=== PATIENT | male | born 1995 | race Caucasian/White ===

== ENCOUNTER → 2018-09-26 | Day surgery (SDC) | payer BC ==
[~2018-09-26] MED LIST: LORTAB 5/500 501 TAB PO; NO HOME MEDICATIONS
== END ==
LOC: SDCO 08:00
DX: R10.32 Left lower quadrant pain (principal); R10.13 Epigastric pain; I10 Essential (primary) hypertension; K21.9 Gastro-esophageal reflux disease without esophagitis
CPT/HCPCS: J2704; J7030

== ENCOUNTER → 2018-10-20 | Outpatient (CLI) | payer BC | LOC: COL.RAD 09:58 | DX: R10.32 Left lower quadrant pain (principal) | CPT/HCPCS: A9537 ==

== ENCOUNTER → 2020-02-01 | Outpatient (CLI) | payer BC | LOC: COL.RAD 08:04 | DX: M54.42 Lumbago with sciatica, left side (principal); G89.29 Other chronic pain ==